=== PATIENT | female | born 1940 | race Two or more races ===

== ENCOUNTER 2019-03-23 06:23 | Outpatient (CLI) | payer OTHER | END 2019-03-23 06:29 | disposition home or self-care (01) | LOC: LAB 06:23 → EDBD 06:23 → LAB 06:29 | DX: K92.1 Melena (principal); K29.00 Acute gastritis without bleeding; K21.9 Gastro-esophageal reflux disease without esophagitis; Z12.11 Encounter for screening for malignant neoplasm of colon; R15.9 Full incontinence of feces ==

== ENCOUNTER 2019-03-30 06:37 | Day surgery (SDC) | payer OTHER | END 2019-03-30 11:35 | disposition home or self-care (01) | LOC: AMB-ENDOS 06:37 | DX: D12.3 Benign neoplasm of transverse colon (principal); K64.1 Second degree hemorrhoids; Z12.11 Encounter for screening for malignant neoplasm of colon ==